=== PATIENT | male | born 1940 | race Caucasian/White ===

== ENCOUNTER 2020-01-19 08:31 | Outpatient (CLI) | payer MEDICARE | END 2020-01-19 23:59 | disposition home or self-care (01) | LOC: RAD 08:31 | PROVIDERS: ATTEND Family Medicine | DX: I11.9 Hypertensive heart disease without heart failure (principal); R05 Cough; R60.9 Edema, unspecified | CPT/HCPCS: 71046; 93306 ==

== ENCOUNTER 2020-12-05 15:30 | Emergency (ER) | payer MEDICARE ==
[~2020-12-05] VITALS: Ht 177.8 cm; Wt 135.0 kg
--- NOTE | 2020-12-05 15:47 | NUR ---
[place] FROM , CC OF DIZZYNESS STARTING SATURDAY. PT STATES WHEN HE WALKS HE HAS TO HOLD ON TO THINGS TO PREVENT FROM FALLING. DENIES ANY FALLS AND CARDIAC HISTORY. EKG FROM SHOWS NEW ONSENT OF LEFT BUNDLE BRANCH BLOCK. PT STATES DIZZYNESS DOES NOT GET BETTER AT REST. AT BEDSIDE
[2020-12-05] MEDS ORDERED: ASPI81TA45 PO (16:11)
[2020-12-05] MEDS ORDERED: TAMS-11 PO (16:11)
[2020-12-05] MEDS ORDERED: TOPI100T8 PO (16:11)
[2020-12-05] MEDS ORDERED: CYAN-10 PO (16:11)
[2020-12-05] MEDS ORDERED: B CO1TAB14 PO (16:11)
[2020-12-05] MEDS ORDERED: BENA1TAB10 PO (16:11)
[2020-12-05] MEDS ORDERED: MULT-297 PO (16:11)
[2020-12-05] MEDS ORDERED: PIOG15TA69 PO (16:11)
[2020-12-05] MEDS ORDERED: CHOL10003 PO (16:19)
[2020-12-05] MEDS ORDERED: OMEG-14 PO (16:19)
[2020-12-05] MEDS ORDERED: SODIUM CHLORIDE FLUSH 10ML SYR IVF ONE (16:30)
[2020-12-05 17:02] LABS: BASOPHILS % (AUTO) 1 % (0-1); EOSINOPHILS % (AUTO) 4 % (1-7); LYMPHOCYTES % (AUTO) 26 % (22-44); MEAN CORPUSCULAR HEMOGLOBIN 29.6 pg (27.5-34.5); MEAN CORPUSCULAR HGB CONC 33.2 g/dL (33.2-36.2); MEAN PLATELET VOLUME 10.7 fL (7.4-10.4); MONOCYTES % (AUTO) 9 % (2-9); NEUTROPHILS % (AUTO) 61 % (42-75); PLATELET COUNT 154 x10^3/uL (130-400); RED CELL DISTRIBUTION WIDTH 14.9 % (9.4-14.8)
[2020-12-05 17:09] LABS: ALANINE AMINOTRANSFERASE 19 U/L (12-78); ALBUMIN 3.6 g/dL (3.4-5.0); ANION GAP 6 mmol/L (5-15); CALCIUM 8.6 mg/dL (8.5-10.1); CHLORIDE 114 mmol/L (98-107); CREATININE 1.12 mg/dL (0.7-1.3)
[2020-12-05 17:14] LABS: ALKALINE PHOSPHATASE 58 U/L (45-117); BILIRUBIN,TOTAL 0.4 mg/dL (0.2-1.0); MD NO; TOTAL PROTEIN 7.2 g/dL (6.4-8.2); TROPONIN I < 0.015 ng/mL (0.000-0.045)
[2020-12-05 18:30] VITALS: BP 134/82
== END 2020-12-05 18:35 | disposition home or self-care (01) ==
LOC: ED 18:23
DX: R42 Dizziness and giddiness (principal); R07.9 Chest pain, unspecified; R00.1 Bradycardia, unspecified; I10 Essential (primary) hypertension; E11.9 Type 2 diabetes mellitus without complications; E78.5 Hyperlipidemia, unspecified
CPT/HCPCS: 36415; 71045; 80053; 83880; 84484; 85025; 93005; 99285